=== PATIENT | female | born 1960 | race Two or more races ===

== ENCOUNTER 2023-05-15 15:59 | Emergency (ER) | payer MEDICARE, OTHER ==
[~2023-05-15] VITALS: Ht 162.6 cm; Wt 60.3 kg
[~2023-05-15 15:59] MED LIST: LORA0.5T PO; SERT50TA PO
[2023-05-15 16:42] VITALS: O2SAT 95
[2023-05-15 16:50] LABS: *BILIRUBIN,URIN NEGATIVE (NEGATIVE); *CLARITY,URINE CLEAR (CLEAR); *COLOR,URINE YELLOW (YELLOW); *KETONES,URINE NEGATIVE (NEGATIVE); *PROTEIN,URINE NEGATIVE (NEGATIVE); *UROBILINOGEN,URINE 0.2 E.U./dl (NORMAL); LEUKOCYTE ESTERASE ,URINE NEGATIVE (NEGATIVE); NITRITE, URINE NEGATIVE (NEGATIVE); PH,URINE 5.5 (5.0-8.0); UGLUCOSE NEGATIVE (NEGATIVE)
[2023-05-15 17:00] LABS: *BLOOD, URINE NEGATIVE (NEGATIVE)
[2023-05-15] MEDS ORDERED: IBUP-1955 PO (17:17)
[2023-05-15] MEDS ORDERED: PHEN-704 PO (17:17)
== END 2023-05-15 17:35 | disposition home or self-care (01) ==
LOC: ER 15:59
DX: R30.0 Dysuria (principal); N32.89 Other specified disorders of bladder; J45.909 Unspecified asthma, uncomplicated; Z88.8 Allergy status to other drugs, medicaments and biological substances; Z91.011 Allergy to milk products; Z79.899 Other long term (current) drug therapy
CPT/HCPCS: A4663